=== PATIENT | male | born 1945 | race Caucasian/White ===

== ENCOUNTER → 2025-08-04 13:43 | Outpatient (CLI) | payer OTHER, SELFPAY ==
--- NOTE | 2025-08-04 13:47 | DI.ECHO.S_ITS ---
[facility]+ [facility] : : [address] : : [place] : : [id number] : : Phone: [phone] Echocardiogram Report + + :Name: WILSON DUNNE Study Date: 08/04/2025 Height: 74 in : :[facility] ReadingLocation: Weight: 195 lb : : Gender: Male BSA: 2.1 m2 : :: 1945 Age: 80 yrs BP: 126/89 mmHg: :Reason For Study: ATRIAL FIBRILLATION : :Ordering Physician: BRUCE, : :TAVO Performed By: Apolinar Yu : :Referring: TAVO BARRERA : + + Interpretation Summary The patient was in atrial fibrillation with heart rates between 57-100 bpm during the exam. The ejection fraction is estimated to be 55-60%. Diastolic function could not be accurately assessed due to atrial fibrillation. The right ventricle is mildly dilated. The right ventricular systolic function is normal. There is severe biatrial enlargement. There is borderline mitral valve prolapse. There is moderate mitral regurgitation. There is mild aortic regurgitation. There is mild tricuspid regurgitation. The right ventricular systolic pressure is estimated to be at least 37 mmHg based on an estimated right atrial pressure of 8 mm Hg. The ascending aorta is mildly enlarged. Procedure: A two-dimensional transthoracic echocardiogram with color flow and Doppler was performed. The study quality was technically good. There is no prior echocardiogram noted for this patient. The patient was in atrial fibrillation with heart rates between 57-100 bpm during the exam. Left Ventricle: The left ventricle is normal in size. Left ventricular wall thickness is mildly increased. There is no ventricular septal defect visualized. The ejection fraction is estimated to be 55-60%. There are no focal wall motion abnormalities. Diastolic function could not be accurately assessed due to atrial fibrillation. Right Ventricle: The right ventricle is mildly dilated. The right ventricular systolic function is normal. Atria: There is severe biatrial enlargement. The interatrial septum bows toward right atrium consistent with elevated left atrial pressure. There is no Doppler evidence for an interatrial shunt. Mitral Valve: There is mild mitral annular calcification. The mitral valve leaflets appear mildly thickened. The mitral valve leaflets are mildly calcified. There is borderline mitral valve prolapse. There is moderate mitral regurgitation. Aortic Valve: The aortic valve is trileaflet. The aortic valve is mildly calcified. There is no aortic valve stenosis. There is mild aortic regurgitation. Tricuspid Valve: The tricuspid valve leaflets are thin and pliable. There is mild tricuspid regurgitation. The right ventricular systolic pressure is estimated to be at least 37 mmHg based on an estimated right atrial pressure of 8 mm Hg. Pulmonic Valve: The pulmonic valve is not well seen, but is grossly normal. There is trace pulmonic regurgitation. Great Vessels: The aortic root is mildly dilated. The ascending aorta is mildly enlarged. The pulmonary artery is normal size. The IVC is dilated (diameter is greater than 2.1 cm) yet it collapses greater than 50% with a sniff. This suggests a right atrial pressure of 8 mm Hg. Pericardium/ Pleura There is no pericardial effusion. There is no pleural effusion. MMode/2D Measurements & Calculations LVIDd: 4.9 cm LVOT diam: 2.5 cm LVIDs: 3.4 cm Ao root diam: 4.0 cm FS: 30.5 % asc Aorta Diam: 3.7 cm EPSS: 0.55 cm Ao Arch Diam (Prox Trans): 2.2 cm IVSd: 1.1 cm LVPWd: 1.1 cm LV fenton. diameter/BSA (cm/m^2): 2.3 LV sys. diameter/BSA (cm/m^2): 1.6 LA A2 area: 51.3 cm2 RA long axis: 9.2 cm LA A4 area: 42.9 cm2 RA area: 48.3 cm2 LA length (vol): 8.6 cm RA vol: 215.7 ml LA vol: 218.4 ml RA : 100.3 ml/m2 LA vol index: 101.6 ml/m2 IVC diam: 2.2 cm RVD1 (basal): 4.4 cm RVD2 (mid): 2.8 cm TAPSE: 1.9 cm Doppler Measurements & Calculations Ao V2 max: 183.8 cm/sec LVOT Max Diallo: 89.3 cm/sec Ao V2 mean: 125.3 cm/sec LV V1 max P.2 mmHg Ao max P.5 mmHg LV V1 VTI: 18.1 cm Ao mean P.0 mmHg LEOBARDO(I,D): 2.4 cm2 Ao V2 VTI: 35.3 cm LEOBARDO(V,D): 2.3 cm2 sev ratio: 0.51 LEOBARDO indexed to BSA (cm^2/m^2): 1.1 MV E max diallo: 82.8 cm/sec TR max diallo: 269.6 cm/sec MV A max diallo: 19.0 cm/sec TR max P.1 mmHg MV E/A: 4.4 PA V2 max: 131.2 cm/sec Med Peak E' Diallo: 11.0 cm/sec PA V2 mean: 83.1 cm/sec E/E' med: 7.5 PA mean P.2 mmHg Lat Peak E' Diallo: 10.5 cm/sec PA pr(Accel): 65.3 mmHg E/E' lat: 7.9 E/e' average: 7.7 MV dec time: 0.20 sec SV(LVOT): 85.4 ml Reading Physician:05:22 PM
--- NOTE | 2025-08-04 13:53 | EKG_ITS ---
[address] [address] Test Date: 2025-08-04 Pat Name: Vahe Huynh Department: DEFAULT Room: Gender: Male [employer]: TON : 1945 Requested By: Order Number: [id number] Reading MD: Tom Ontiveros Measurements Intervals [place] Rate: 78 P: TN: QRS: -16 QRSD: 90 T: 5 QT: 378 QTc: 430 Interpretive Statements Atrial fibrillation Septal infarct , age undetermined Electronically Signed On 08-04-2025 16:55:13 PDT by Tom Ontiveros
== END ==
LOC: ECHO 13:45
PROVIDERS: Referring Provider Chiropractor; Visit Provider Chiropractor
DX: I08.3 Combined rheumatic disorders of mitral, aortic and tricuspid valves (principal); I48.91 Unspecified atrial fibrillation; I77.810 Thoracic aortic ectasia; I77.89 Other specified disorders of arteries and arterioles
CPT/HCPCS: 93005; 93306